=== PATIENT | male | born 1935 | race Caucasian/White ===

== ENCOUNTER 2016-09-30 09:00 | Day surgery (SDC) | payer MEDICARE, BC ==
[~2016-09-30 09:00] MED LIST: Sodium Chloride 0.9% 1,000 ML IV SCH; Sodium Chloride 0.9% 5 ML Syringe FLUSH PRN
[2016-09-30] MEDS ORDERED: Lidocaine 2% Jelly 5 ML Tube ONE (09:35)
[2016-09-30] MEDS ORDERED: fentaNYL 100 MCG/2 ML SDV ONE (09:48)
[2016-09-30] MEDS ORDERED: ceFAZolin 1 GM Vial ONE (09:48)
[2016-09-30] MEDS ORDERED: Propofol 200 MG/20 ML SDV ONE (09:48)
[2016-09-30] MEDS ORDERED: Midazolam 1 MG/ML 2 ML SDV ONE (09:48)
[2016-09-30] MEDS ORDERED: Ondansetron 4 MG/2 ML SDV IV ONE (10:44)
[2016-09-30] MEDS ORDERED: fentaNYL 100 MCG/2 ML SDV IV ONE (10:44)
[2016-09-30] MEDS ORDERED: Propofol 200 MG/20 ML SDV IV ONE (10:44)
[2016-09-30] MEDS ORDERED: Midazolam 1 MG/ML 2 ML SDV IV ONE (10:44)
[2016-09-30] MEDS ORDERED: ceFAZolin 1 GM Vial IV ONE (10:44)
[2016-09-30] MEDS ORDERED: Lidocaine 2% Jelly 10 ML Urojet ONE (11:04)
--- NOTE | 2016-09-30 11:17 | PCM.OPNOTE ---
- General Post-Op/Procedure Note Date of Surgery/Procedure: 09/30/16 Operative Procedure(s): Cystoscopy Findings: normal Pre Op Diagnosis: History of bladder carcinoma Anesthesia Technique: MAC Primary Surgeon: Jazzmine Alvarenga Complications: None Condition: Good Free Text/Narrative:: Preoperative diagnosis: History of bladder carcinoma Postoperative diagnosis: As above Procedure performed: cystoscopy informed consent was obtained the patient regarding this procedure. All possible complications discussed with the patient was taken the OR and given a satisfactory general anesthetic. he was then kept in the lithotomy position. His genitals were thoroughly prepped and draped in the usual fashion. Cystoscopy was accomplished using a forward-viewing Timbo Zeiss cystoscope over a 17 German obturator sheath. There was evidence of mild trilobar enlargement the prostate. The scope was introduced into the bladder. There was moderate trabeculation noted. Both ureteric orifices were normal in location and the efflux was clear. There was no evidence of recurrence of bladder neoplasm. The scope was withdrawn. Patient tolerated procedure well. There were no problems with
[2016-09-30 14:58] VITALS: BP 128/75
== END 2016-09-30 14:05 | disposition home or self-care (01) ==
LOC: KA.SDS 09:00
PROVIDERS: ATTEND Family Medicine
DX: N40.0 Benign prostatic hyperplasia without lower urinary tract symptoms (principal); I25.10 Atherosclerotic heart disease of native coronary artery without angina pectoris; I10 Essential (primary) hypertension; Z88.8 Allergy status to other drugs, medicaments and biological substances; Z90.49 Acquired absence of other specified parts of digestive tract; Z98.890 Other specified postprocedural states; Z79.899 Other long term (current) drug therapy
CPT/HCPCS: 00910; 36416; 52000; 85610; J0690; J2250; J2405; J2704; J3010; J7030; 36415